=== PATIENT | female | born 1960 ===

== ENCOUNTER 2021-04-01 12:02 | Emergency (ER) | payer SELFPAY ==
[2021-04-01] MEDS ORDERED: diphenhydrAMINE 50 MG/ML VIAL ONE (13:08)
[2021-04-01] MEDS ORDERED: Metoclopramide HCl 10 MG/2 ML VIAL ONE (13:08)
== END 2021-04-01 14:50 | disposition home or self-care (01) ==
LOC: CSHERS 12:02
DX: R51.9 Headache, unspecified (principal); I10 Essential (primary) hypertension; E78.5 Hyperlipidemia, unspecified
CPT/HCPCS: 70450; 96374; 96375; J1200; J2765